=== PATIENT | female | born 1950 | race Caucasian/White ===

== ENCOUNTER 2016-06-04 11:24 | Outpatient (CLI) | payer OTHER | END 2016-06-04 11:45 | disposition home or self-care (01) | LOC: LAB 11:24 → EEVIPCON 11:24 → LAB 11:45 | DX: E78.2 Mixed hyperlipidemia (principal) | CPT/HCPCS: 36415-UA; 83036-90 ==

== ENCOUNTER 2016-07-13 12:05 | Outpatient (CLI) | payer OTHER | END 2016-07-13 12:17 | disposition home or self-care (01) | LOC: LAB 12:05 | DX: L23.9 Allergic contact dermatitis, unspecified cause (principal) | CPT/HCPCS: 86003-90; 86005-90; 86038-90 ==

== ENCOUNTER 2016-08-04 07:13 | Outpatient (CLI) | payer OTHER | END 2016-08-04 07:30 | disposition home or self-care (01) | LOC: LAB 07:13 | DX: I10 Essential (primary) hypertension (principal); R73.09 Other abnormal glucose; M25.50 Pain in unspecified joint | CPT/HCPCS: 36415-UA; 85652-TC; 86038-90; 86141-TC ==

== ENCOUNTER 2017-01-23 08:46 | Outpatient (CLI) | payer OTHER ==
[2017-01-23 09:45] LABS: ALB/GLOB RATIO 1.3 (1.0-1.8); ALKALINE PHOSPHATASE 48 U/L (34-104); ANION GAP 9.3 (7.0-16.0); BILIRUBIN,TOTAL 0.6 mg/dL (0.3-1.0); BUN - UREA NITROGEN 20 mg/dL (7-25); BUN/CREATININE RATIO 28.6; CALCIUM SERUM 9.7 mg/dL (8.6-10.3); CARBON DIOXIDE 22.8 mEq/L (21.0-31.0); CHLORIDE 108 mEq/L (98-107); CHOLESTEROL 142 mg/dL (<200); CREATININE - SERUM 0.7 mg/dL (0.6-1.2); GLUCOSE 115 mg/dL (70-105); POTASSIUM SERUM 4.1 mEq/L (3.5-5.1); SGOT 19 U/L (13-39); SGPT/ALT 21 U/L (7-52); SODIUM SERUM 136 mEq/L (136-145); TRIGLYCERIDES 85 mg/dL (<150)
[2017-01-23 10:11] LABS: URINE BILIRUBIN NEGATIVE (NEGATIVE); URINE BLOOD SMALL (NEGATIVE); URINE GLUCOSE (UA) NEGATIVE (NEGATIVE); URINE KETONE NEGATIVE (NEGATIVE); URINE PROTEIN NEGATIVE (NEGATIVE); URINE UROBILINOGEN 0.2 E.U./dL (0.2 - 1.0)
[2017-01-23 10:13] LABS: URINE COLOR YELLOW
[2017-01-23 10:19] LABS: URINE BACTERIA FEW /hpf (NONE SEEN); URINE EPITHELIAL CELLS MODERATE /lpf (FEW); URINE WBC 0-2 /hpf (0-5)
[2017-01-25 12:13] LABS: A/G RATIO 1.2 (0.7-1.7); ALBUMIN 4.3 g/dL (2.9-4.4); ALPHA-1-GLOBULIN 0.2 g/dL (0.0-0.4); BETA GLOBULIN 1.1 g/dL (0.7-1.3); GAMMA GLOBULIN 1.4 g/dL (0.4-1.8); GLOBULIN, TOTAL 3.5 g/dL (2.2-3.9); M-SPIKE Not Observed g/dL (Not Observed); MICROALBUMIN RANDOM RUINE 9.3 ug/mL (Not Estab.); PROTEIN, TOTAL, SERUM 7.8 g/dL (6.0-8.5)
== END 2017-01-23 09:19 ==
LOC: LAB 08:46
DX: I10 Essential (primary) hypertension (principal); K57.31 Diverticulosis of large intestine without perforation or abscess with bleeding; R73.09 Other abnormal glucose
CPT/HCPCS: 36415-UA; 80053-TC; 80061-TC; 81001-TC; 82043-90; 83036-90; 84165-90